=== PATIENT | female | born 1985 | race Two or more races ===

== ENCOUNTER 2017-10-13 06:59 | Emergency (ER) | payer OTHER ==
[~2017-10-13] VITALS: Ht 162.6 cm; Wt 71.2 kg
== END 2017-10-13 13:18 | disposition home or self-care (01) ==
LOC: ER 06:59
DX: K29.70 Gastritis, unspecified, without bleeding (principal); R10.13 Epigastric pain

== ENCOUNTER 2022-02-03 23:31 | Emergency (ER) | payer OTHER ==
[~2022-02-03] VITALS: Ht 157.5 cm; Wt 102.5 kg
[2022-02-04] MEDS ORDERED: PEPCID40 MG PO (04:32)
[2022-02-04] MEDS ORDERED: ZOFRAN8 MG PO (04:32)
== END 2022-02-04 04:43 ==
LOC: ER 23:31
DX: K29.70 Gastritis, unspecified, without bleeding (principal); R11.10 Vomiting, unspecified; K59.00 Constipation, unspecified; Z91.040 Latex allergy status

== ENCOUNTER 2022-05-12 14:48 | Emergency (ER) | payer OTHER ==
[~2022-05-12] VITALS: Ht 157.5 cm; Wt 98.0 kg
[~2022-05-12 14:48] MED LIST: PEPCID40 MG PO; ZOFRAN8 MG PO
[2022-05-12] MEDS ORDERED: PRENATAL + DHA1 EAC1 (15:46)
== END 2022-05-12 18:21 | disposition home or self-care (01) ==
LOC: ER 14:48
DX: O26.892 Other specified pregnancy related conditions, second trimester (principal); Z3A.26 26 weeks gestation of pregnancy; S89.92XA Unspecified injury of left lower leg, initial encounter; W01.0XXA Fall on same level from slipping, tripping and stumbling without subsequent striking against object, initial encounter; Y93.9 Activity, unspecified; Y92.019 Unspecified place in single-family (private) house as the place of occurrence of the external cause; S99.912A Unspecified injury of left ankle, initial encounter

== ENCOUNTER 2022-05-16 08:25 | Outpatient (CLI) | payer OTHER ==
[~2022-05-16 08:25] MED LIST changes: +PRENATAL + DHA1 EAC1
== END 2022-05-16 08:36 | disposition home or self-care (01) ==
LOC: SONOGRAMA 08:25
PROVIDERS: ATTEND Obstetrics & Gynecology
DX: M25.572 Pain in left ankle and joints of left foot (principal); M25.562 Pain in left knee

== ENCOUNTER 2023-02-03 17:16 | Emergency (ER) | payer OTHER ==
[~2023-02-03] VITALS: Ht 162.6 cm; Wt 95.3 kg
[2023-02-03 18:19] LABS: HEMATOCRIT 39.8 % (36.0-45.00); HEMOGLOBIN 13.2 g/dL (12.0-15.00); MEAN CORPUSCULAR HEMOGLOBIN 28.4 pg (27.00-32.0); MEAN CORPUSCULAR HGB CONC 33.1 g/dl (32.0-36.0); PLATELET COUNT 323 K/uL (150-450); RED BLOOD COUNT 4.63 M/uL (4.00-6.00); RED CELL DISTRIBUTION WIDTH 14.5 % (11.5-14.5)
[2023-02-03 19:43] LABS: ABG PH 7.445 (7.35-7.45); ABG PO2 92.3 mmHg (80-100); ABG pCO2 33.5 mmHg (35-45); BASE EXCESS -0.8 mmol/l; BICARBONATE 22.5 mmol/l (23-25); SaO2 97.5 %; Tco2 23.5 mmol/l; allen test SATISFACTORY; o2 21 %; puncture site RADIAL RIGHT
== END 2023-02-03 19:56 | disposition home or self-care (01) ==
LOC: ER 17:17
PROVIDERS: General Practice
DX: J45.998 Other asthma (principal); Z91.040 Latex allergy status; Z20.822 Contact with and (suspected) exposure to COVID-19

== ENCOUNTER 2023-02-24 15:34 | Emergency (ER) | payer OTHER ==
[~2023-02-24] VITALS: Ht 162.6 cm; Wt 101.6 kg
[2023-02-24 18:24] LABS: HEMOGLOBIN 14.2 g/dL (12.0-15.00); MEAN CELL VOLUME 86.5 fL (80.00-100.00); MEAN CORPUSCULAR HEMOGLOBIN 29.2 pg (27.00-32.0); MEAN CORPUSCULAR HGB CONC 33.8 g/dl (32.0-36.0); PLATELET COUNT 344 K/uL (150-450); RED BLOOD COUNT 4.86 M/uL (4.00-6.00); RED CELL DISTRIBUTION WIDTH 14.7 % (11.5-14.5)
[2023-02-24 18:56] LABS: ALBUMIN 3.7 gm/dL (3.4-5.0); BILIRUBIN TOTAL 2.01 mg/dL (0.3-1.2); CALCIUM 8.7 mg/dL (8.5-10.1); CREATININE SERUM 0.79 mg/dL (0.55-1.02); GFR 82.35; GLOBULINA 4.5 G/DL (2.4-3.5); POTASSIUM 4.03 mEq/L (3.5-5.1); TOTAL PROTEIN 8.2 gm/dL (6.4-8.2)
[2023-02-24] MEDS ORDERED: PEPCID AC20 MG PO (21:35)
[2023-02-24] MEDS ORDERED: ONDANSETRON ODT8 MG PO (21:35)
== END 2023-02-24 22:06 | disposition home or self-care (01) ==
LOC: ER 15:34
PROVIDERS: General Practice
DX: K52.9 Noninfective gastroenteritis and colitis, unspecified (principal); R10.11 Right upper quadrant pain; R11.10 Vomiting, unspecified; Z91.040 Latex allergy status